=== PATIENT | female | born 1990 | race Caucasian/White ===

== ENCOUNTER 2018-04-05 08:30 | Emergency (ER) | payer OTHER ==
[2018-04-05] MEDS: IBUPROFEN 600 MG TAB PO (09:37)
== END 2018-04-05 09:54 | disposition home or self-care (01) ==
LOC: FTE 08:30
DX: G56.01 Carpal tunnel syndrome, right upper limb (principal); R40.2412 Glasgow coma scale score 13-15, at arrival to emergency department
CPT/HCPCS: 29125; 99282-25

== ENCOUNTER 2018-08-07 09:05 | Emergency (ER) | payer OTHER ==
[2018-08-07] MEDS: DIPHENHYDRAMINE 2.5 MG/ML 5ML CUP PO (11:58)
[2018-08-07] MEDS: ACETAMINOPHEN 500 MG TAB PO (11:59)
[2018-08-07] MEDS: MECLIZINE 12.5 MG TAB PO (11:59)
== END 2018-08-07 12:54 | disposition home or self-care (01) ==
LOC: FTE 09:05
DX: J01.00 Acute maxillary sinusitis, unspecified (principal); G56.01 Carpal tunnel syndrome, right upper limb
CPT/HCPCS: 99282; Z7502